=== PATIENT | female | born 1955 | race Caucasian/White ===

== ENCOUNTER 2024-08-21 13:34 | Day surgery (SDC) | payer MEDICARE, OTHER, SELFPAY ==
[2024-08-21 10:29] VITALS: BMI 23.1
[2024-08-21 13:59] VITALS: BP 148/90; PULSE 62; RESP 16; TEMP 36.9; O2SAT 99; BMI 23.1
[2024-08-21] MEDS: ACETAMINOPHEN 325 MG TABLET 975 MG PO (14:36)
--- NOTE | 2024-08-21 16:22 | PM.PREOP ---
Pre-operative Note Interval Note History & Physical reviewed/Exam performed by Physician: Yes Changes to H&P: No
--- NOTE | 2024-08-21 16:23 | P.OP_ITS ---
Operative Date/Time/Diagnoses Date of procedure: 08/21/24 Time of procedure: 16:23 Pre-op diagnosis: Left 5th finger proximal phalanx fracture displaced Post-op diagnosis: same Procedure & Clinicians Procedure: Closed reduction and percutaneous pinning left 5th finger proximal phalanx fracture Same procedure as scheduled: Yes Indications: This is a pleasant 69-year-old left-hand dominant female who was running and jammed her finger noted the acute onset of finger pain and deformity. She was brought to the operating room for closed reduction and pinning possible open reduction internal fixation. Surgeon: Shruti Dorado Click Yes if Unassisted: Yes Anesthesia Type: General Operative Notes Findings: Displaced comminuted fracture, acceptable reduction and stable fixation. Closure Type: primary Specimen(s): none sent Prosthetic devices, grafts, tissues, transplants, or devices: 2 K-wires 0.45 Estimated Blood Loss (mL): 5 Procedure in detail: Patient was brought to the operating room and underwent induction and anest hesia. A time-out was performed. Patient's left upper extremity was prepped draped standard sterile fashion. Patient was given IV antibiotics. Mini C-arm was brought in and the left hand 5th finger was meticulously reduced with a combination of longitudinal traction. It was held and fixed with 2 K-wires. AP lateral and oblique showed acceptable alignment of the finger. A dense digital block was performed with Marcaine. Pins were carefully cut and bent. The patient was carefully padded and then placed in a wrist based splint which included the 4th and 5th finger to the distal tip. She tolerated the procedure well. Complications none. Complications: none Post-operative Condition: stable Disposition: same day surgery Plan for aftercare: Return to clinic in 10 days or so for x-rays. Okay to leave in splint if splint is in good repair.
[2024-08-21] MEDS: CEFAZOLIN 2 GM/100 ML PREMIX 100 ML IV (16:33)
--- NOTE | 2024-08-21 16:50 | SUR.OPER ---
Supine on padded OR bed, head on pillow, right arm secured on padded arm board at <90 degrees abduction, left arm on arm table, legs uncrossed, safety belt at thigh, tape over blanket over lower legs.
[2024-08-21] MEDS: BUPIVACAINE 0.25% (PF) VIAL 30 ML INJ (17:05)
[2024-08-21 17:11] VITALS: BP 150/91; PULSE 73; RESP 12; TEMP 36.6; O2SAT 97
[2024-08-21 17:16] VITALS: BP 172/86; PULSE 66; RESP 12; O2SAT 99
[2024-08-21 17:21] VITALS: BP 170/82; PULSE 58; RESP 13; TEMP 36.7; O2SAT 99
== END 2024-08-21 17:58 | disposition home or self-care (01) ==
PROVIDERS: PCP Internal Medicine; Referring Provider Orthopaedic Surgery; Visit Provider Orthopaedic Surgery
PROC: (CPT 26727; principal; 2024-08-21 15:15)
DX: S62.617A Displaced fracture of proximal phalanx of left little finger, initial encounter for closed fracture (principal); W01.0XXA Fall on same level from slipping, tripping and stumbling without subsequent striking against object, initial encounter
CPT/HCPCS: 26727; C1713; J0690; J1100; J2405; J2704; J3010

== ENCOUNTER → 2025-08-04 10:54 | Outpatient (CLI) | payer MEDICARE, OTHER, SELFPAY ==
[2025-08-04 19:14] LABS: Add Manual Diff / Slide Review NO; Hematocrit 41.7 % (36-46); Hemoglobin 14.2 g/dL (12.0-16.0); Lymphocytes Absolute Auto 1200 /uL (1100-4500); Mean Corpuscular HGB Conc 34.0 % (30-36); Mean Corpuscular Hemoglobin 30.3 PG (26-34); Mean Corpuscular Volume 88.9 fL (80-100); Platelet Count 311 X10^3/uL (150-400)
[2025-08-04 19:38] LABS: Alanine Aminotransferase 19 IU/L (<35); Albumin 4.4 g/dL (3.5-5.0); Albumin Globulin Ratio 1.7 (1.0-2.8); Alkaline Phosphatase 81 U/L (38-126); Blood Urea Nitrogen 17 mg/dL (7-17); Calcium 9.8 mg/dL (8.4-10.2); Carbon Dioxide 27 mmol/L (22-32); Chloride 104 mmol/L (98-107); Cholesterol 248 mg/dL (140-199); Estimated Glomerular Filt Rate > 60 mL/min (>60); Globulin 2.6 g/dL (1.7-4.1); Glucose 104 mg/dL (70-99); HDL Cholesterol 102 mg/dL (40-60); HEMOLYSIS < 15 (0-50); Potassium 4.3 mmol/L (3.4-5.1); Sodium 139 mmol/L (137-145); Total Protein 7.0 g/dL (6.3-8.2); Triglycerides 64 mg/dL (35-150)
[2025-08-04 19:50] LABS: Vitamin D 25 Hydroxy (D3) 26.0 ng/mL (30.0-100.0)
== END ==
PROVIDERS: PCP Physician Assistant; Visit Provider Physician Assistant
DX: Z13.6 Encounter for screening for cardiovascular disorders (principal); Z79.899 Other long term (current) drug therapy; M80.00XA Age-related osteoporosis with current pathological fracture, unspecified site, initial encounter for fracture
CPT/HCPCS: 80053; 80061; 82306; 85025

== ENCOUNTER → 2025-08-06 11:08 | Outpatient (CLI) | payer MEDICARE, OTHER, SELFPAY ==
--- NOTE | 2025-08-06 11:10 | DI.RAD.S_ITS ---
PROCEDURE: XR DEXA AXIAL SKELETON INDICATIONS: Osteoporosis surveillance COMPARISON: None. FINDINGS: Lumbar Spine: Bone mineral density 0.738 g/cm2, T score -2.8. Left Femoral Neck: Bone mineral density 0.548 g/cm2, T score -2.7. Left Hip: Bone mineral density 0.612 g/cm2, T score -2.7. Fracture Risk Calculation (when applicable): 10-year fracture risk of a major osteoporotic fracture 15 percent and of a hip fracture 3.8 percent. (T score greater or equal to -1.0 to: NORMAL) (T score from -1.1 to -2.4: OSTEOPENIA) (T score less than or equal to -2.5: OSTEOPOROSIS) IMPRESSION: Osteoporosis by WHO classification. Follow-up guidelines as follows: Osteoporosis: Consider a repeat DEXA and Vertebral Fracture Assessment (VFA) exam in 2 years or sooner if medically necessary, to reassess this patient's status. Osteopenia: Consider a repeat DEXA in 2-3 years to reassess this patient's status, or if there is a new clinical indication. Normal: Consider a repeat DEXA in 5 years or sooner, or if there is a new clinical indication. All treatment decisions require clinical judgment and consideration of individual patient factors, including patient preferences, comorbidities, previous drug use, risk factors not captured in the FRAX model (e.g., frailty, falls, vitamin D deficiency, increased bone turnover, interval significant decline in bone density ) and possible under- or over-estimation of fracture risk by FRAX. In addition, the NOF Guide recommends that FDA-approved medical therapies be considered in postmenopausal women and men age >= 50 years with a: * Hip or vertebral (clinical or morphometric) fracture * T-score of <=-2.5 at the spine or hip * Ten-year fracture probability by FRAX of >= 3% for hip fracture or >=20% for major osteoporotic fracture. Dictated by: Enrrique Membreno M.D. on 08/08/2025 at 13:20 Approved by: Enrrique Membreno M.D. on 08/08/2025 at 13:21
== END ==
LOC: RAD 11:10
PROVIDERS: PCP Physician Assistant; Referring Provider Physician Assistant; Visit Provider Physician Assistant
DX: M81.0 Age-related osteoporosis without current pathological fracture (principal)
CPT/HCPCS: 77080